=== PATIENT | female | born 1975 ===

== ENCOUNTER 2025-03-05 06:25 | Day surgery (SDC) | payer OTHER, SELFPAY | END 2025-03-05 14:27 | disposition home or self-care (01) | LOC: GI 06:25 | PROVIDERS: ATTENDING PHYSICIAN Internal Medicine Gastroenterology | DX: Z12.11 Encounter for screening for malignant neoplasm of colon (principal); Z86.0100 Personal history of colon polyps, unspecified; K64.8 Other hemorrhoids | CPT/HCPCS: G0105 ==